=== PATIENT | female | born 1970 | race Caucasian/White ===

== ENCOUNTER → 2016-07-15 | Day surgery (SDC) | payer MEDICAID ==
[~2016-07-15] VITALS: Ht 162.6 cm; Wt 92.6 kg
[~2016-07-15] MED LIST: *LABETALOL HCL 100 MG/20 ML VIAL PERIprocedural Use ONLY ONE; *ONDANSETRON 4 MG VIAL PERIprocedural Use ONLY ONE; ACETAMINOPHEN 1000 MG/100 ML VIAL IV ONE; ACETAMINOPHEN/HYDROcodone 325 MG/5 MG TAB PO PRN; ALPR0.5T3 PO; BUPIVACAINE HCL PF 0.5% 30 ML VIAL ONE; CEPH-460 PO; CITA20TA4 PO; DO NOT ADM ANY ANTICOAGULANT DRUGS XX PRN; FAMOTIDINE 20 MG/2 ML VIAL ONE; HYDR-2376 PO; HYDR-3288 PO; HYDR12.57 PO; HYDROmorphone HCL PF 2 MG/ML VIAL ONE; IBUP-232 PO; INSULIN HUMAN REGULAR 1,000 UNITS/10 ML VIAL SQ PRN; KETO10 PO; LACTATED RINGER'S 1000 ML IV SCH; LIDOCAINE HCL 0.5% PF 50 ML VIAL ONE; LIDOCAINE HCL 2% 50 ML VIAL ONE; MEPERIDINE HCL 50 MG/ML VIAL IM PRN; METOPROLOL TARTRATE 25 MG TAB PO PRN; MIDAZOLAM HCL 2 MG/2 ML VIAL ONE; NEOMYCIN/POLYMYXIN 1 ML G.U. IRRIGANT IR ONE; NEOMYCIN/POLYMYXIN 1 ML G.U. IRRIGANT IRRIGATION ONE; NORC5TAB PO; ONDANSETRON HCL 4 MG/2 ML VIAL IV PUSH ONE; OXYC40TA9 PO; PROPOFOL 200 MG/20 ML AMP IV ONE; ROPIVACAINE 0.5% PF INJ 30 ML VIAL NB ONE; SODIUM CHLORID 0.9% 500 ML IV SCH; ZOFR4TAB3 SL; ceFAZolin 1,000 MG/NS 100 ML IV SCH; ceFAZolin 2 GM PREMIX 50 ML IV SCH
[2016-07-15 11:28] VITALS: BP 150/111; PULSE 86; RESP 18; TEMP 98; O2SAT 96
[2016-07-15 12:26] LABS: AUTOMATED NEUTROPHIL # 5.9 TH/MM3 (1.8-7.7); BASOPHIL % 0.3 % (0.0-2.0); EOSINOPHIL # 0.1 TH/MM3 (0-0.4); EOSINOPHIL % 0.7 % (0.0-4.0); HEMATOCRIT 37.3 % (35.0-46.0); HEMO FLAGS DIFF FINAL; LYMPH % 26.8 % (9.0-44.0); LYMPHOCYTE # 2.4 TH/MM3 (1.0-4.8); MEAN CELL VOLUME 82.2 FL (80.0-100.0); MEAN CORPUSCULAR HEMOGLOBIN 28.6 PG (27.0-34.0); MEAN CORPUSCULAR HGB CONC 34.8 % (32.0-36.0); MONO % 6.5 % (0.0-8.0); NEUT % 65.7 % (16.0-70.0); PLATELET COUNT 283 TH/MM3 (150-450); RED BLOOD COUNT 4.54 MIL/MM3 (4.00-5.30); RED CELL DISTRIBUTION WIDTH 12.9 % (11.6-17.2)
[2016-07-15 17:40] VITALS: BP 145/94; PULSE 97; RESP 16; TEMP 98; O2SAT 97
--- NOTE | 2016-07-15 22:02 | MP ---
cc: VLADIMIR VILLAR MD DATE OF SURGERY 07/15/16 PREOPERATIVE DIAGNOSIS 1. Right distal radius fracture. 2. Right acute carpal tunnel syndrome. 3. Right ulnar styloid fracture. 4. Right third finger fracture. 5. Right fourth metacarpal fracture. PROCEDURE 1. Right distal radius open reduction internal fixation. 2. Right ulnar styloid open reduction internal fixation. 3. Right open carpal tunnel release 4. Use of image intensifier. 5. Right third finger manipulation under anesthesia MP joint. 6. Right fourth finger manipulation under anesthesia MP joint 7. Use of image intensifier SURGEON Leroy Cook III, MD PROCEDURE IN DETAIL The patient is brought to the operating room placed supine on the operating table. After the correct side and site of surgery were verified by members of each team in the room multiple times including the patient and myself and after preop markings and preoperative written consent were verified by everyone, after adequate preoperative time-out was performed to everyone's satisfaction, after adequate general anesthesia and nerve block had been achieved, the right upper extremity was prepped and draped in traditional sterile surgical fashion using a mini C-arm. Site of the intended procedures were verified. Additional local anesthetic was injected over the site of the planned procedures to augment the nerve block. The limb was exsanguinated with an Deon wrap. A highly placed well-padded axillary tourniquet was inflated to 200 mmHg for a total 57 minutes and then it was down for approximately 30 minutes and then reinflated for another 57 minutes. The first incision was over the carpal tunnel which is longitudinally oriented. Blunt dissection performed. Bipolar electrocautery was used several times throughout the case as needed. The palmar fascia was identified and retracted in opposite directions. The transverse carpal ligament was identified and was found to be prominent and bulging and it was then divided in its midline from its proximal most to its distal-most extent. The median nerve was found be intact, just under a little bit of pressure from the deformity in the wrist. A thorough irrigation was performed with saline and then the skin edges were approximated using running and interrupted 4-0 nylon sutures. A longitudinal incision was made on the radial side of the flexor carpi radialis tendon carried down through the skin and subcutaneous tissue. Blunt dissection was performed. The tissue between the flexor carpi radialis tendon and the radial artery was then opened and they were retracted in opposite directions. The radial artery was protected and kept in view the entire case. The pronator quadratus was sharply elevated off of the volar aspect of the distal radius. The fracture fragment was identified and distracted. Appeared thorough irrigation was performed to irrigate out the fracture and some clot was extracted and then reduction was able to be manually achieved. Provisional fixation using a 0.60 K-wire in the radial styloid was used and it was examined under a mini C-arm and found to be near anatomic reduction with recreation with sabianism of the volar tilt. Using the Synthes distal radius set, a volar plate was used and secured in place. Six screws distally staying out the joint with three screws proximally. They are all tailored to length and surface contour. Passive range of motion examination was then performed and was full unrestricted and smooth with no crepitance at all. The screws all had good purchase. Thorough irrigation was performed several times throughout this case. The pronator quadratus was repaired over most of the plate. The axillary tourniquet was released after 55 total minutes. The hand and all the fingers on the right became immediately soft, pink, and warm and had brisk capillary refill of less than 2 seconds. The radial artery became soft, full and pulsatile and there was no active bleeding. Thorough irrigation was performed again and the skin edges were reclosed first with a deep 3-0 Vicryl suture, then a running 4-0 nylon suture. Final x-rays were obtained at the end of the case. Attention was then paid to the ulnar styloid. Additional local anesthetic was injected into the skin. The limb was then re-exsanguinated after a 30-minute tourniquet break and a highly placed well-padded axillary tourniquet was inflated to 200 mmHg for a total of 57-minutes longitudinally oriented incision at the distal aspect of the ulnar was made and carried down through skin and subcutaneous tissue. Blunt dissection was performed. The dorsal sensory branch of the ulnar nerve was not encountered and was not within the surgical wounds at any point during this case. The retinacular layer over the ulnar styloid was incised longitudinally and dissection with a periosteal elevator then revealed the styloid fracture which was fractured at the base of the styloid. Thorough irrigation was performed. Complete near perfect reduction was achieved using a 0.045 cm K-wire and was then augmented with a 0.035 cm K-wire at a different angle. A 22-gauge surgical steel wire was then used as a cerclage wire and then the K-wires were cut at the correct length, bent and tamped into place. The passive range of motion examination again was unrestricted without any crepitance. Thorough irrigation was performed. The tissue over the ulnar styloid was closed in layers using 3-0 Ethibond suture. Again, the dorsal sensory branch of the ulnar nerve was kept completely out of the surgical field. Thorough irrigation was performed again and the skin edges were reapproximated using 4-0 Vicryl sutures and the deep dermal tissue and then running 4-0 nylon suture. The hand and arm were thoroughly cleansed and dried. Betadine Adaptic dressings were applied on top the wound. Final x-rays were obtained. A bulky well-padded, well molded sugar-tong splint immobilizing the second, third and fourth MP joints also was made leaving only the thumb completely free. The patient was awakened from anesthesia and transported to the Post Anesthesia Care Unit awake in stable condition at the end of the case. Sponge, needle, instrument counts were correct at the end of the case as reported by nurses in the room. MD VICENTA Mas III/ /4:29 PM /9:40 PM
== END | disposition home or self-care (01) ==
LOC: HSDC 10:51
PROVIDERS: ATTEND Orthopaedic Surgery Hand Surgery
DX: G56.01 Carpal tunnel syndrome, right upper limb (principal); S52.501A Unspecified fracture of the lower end of right radius, initial encounter for closed fracture; S52.611A Displaced fracture of right ulna styloid process, initial encounter for closed fracture; S62.312A Displaced fracture of base of third metacarpal bone, right hand, initial encounter for closed fracture; S62.602A Fracture of unspecified phalanx of right middle finger, initial encounter for closed fracture; V29.9XXA Motorcycle rider (driver) (passenger) injured in unspecified traffic accident, initial encounter
CPT/HCPCS: 01830; 25608; 25652; 64415; 64721; 76000; 85025; C1713; J0131; J0690; J2250; J2405; J2795; J3010; J1170